=== PATIENT | female | born 1950 | race Caucasian/White ===

== ENCOUNTER → 2021-12-26 | Outpatient (CLI) | payer MEDICARE, OTHER | LOC: CT 14:00 | DX: J34.2 Deviated nasal septum (principal); W19.XXXA Unspecified fall, initial encounter; R53.83 Other fatigue; R11.0 Nausea; S06.5X9A Traumatic subdural hemorrhage with loss of consciousness of unspecified duration, initial encounter | CPT/HCPCS: 70450 ==